=== PATIENT | female | born 1935 | race Caucasian/White ===

== ENCOUNTER 2020-12-09 18:43 | Outpatient (CLI) | payer MEDICARE, MEDICAID, SELFPAY ==
[2020-12-09 19:20] LABS: Acetaminophen < 5.0 ug/mL (10-30)
== END 2020-12-09 18:44 | disposition home or self-care (01) ==
LOC: LAB 18:46
PROVIDERS: PCP Family Medicine; Visit Provider Family Medicine
DX: T39.1X1A Poisoning by 4-Aminophenol derivatives, accidental (unintentional), initial encounter (principal)
CPT/HCPCS: 80307

== ENCOUNTER 2021-02-01 18:08 | Emergency (ER) | payer MEDICARE, MEDICAID, SELFPAY ==
[2021-02-01 18:15] VITALS: BP 184/69; PULSE 70; RESP 19; TEMP 36.7; O2SAT 96; BMI 28.3
--- NOTE | 2021-02-01 18:37 | CTR_ITS ---
PROCEDURE INFORMATION: Exam: CT Chest Without Contrast; Diagnostic Exam date and time: 02/01/2021 6:37 PM Age: 85 years old Clinical indication: Injury or trauma; Fall; Generalized; Blunt trauma (contusions or hematomas); Patient HX: ? Syncope episode fell getting out of bed C/O L rib and R hip pain; Additional info: Fall chest and abdomen pain TECHNIQUE: Imaging protocol: Diagnostic computed tomography of the chest without contrast. Radiation optimization: All CT scans at this facility use at least one of these dose optimization techniques: automated exposure control; mA and/or kV adjustment per patient size (includes targeted exams where dose is matched to clinical indication); or iterative reconstruction. COMPARISON: CTA Chest-Pulmonary Emb [id number] 09/27/2018 4:58 PM report only, for technical reasons the actual images are not available RADIATION DOSE METRICS: Total DLP (mGy-cm): 1354.21 FINDINGS: Lungs: There is no pneumonia, mass or pleural effusion. In the left upper and lower lobes there are several small 2-4 mm noncalcified nodules. In the lingula there is a 4 mm hazy peripheral nodule. These nodules were not described on the prior report although the actual images are not currently available for direct comparison. Pleural spaces: See Lungs finding. Heart: The mitral valve is heavily calcified. Extensive coronary atherosclerosis. Aorta: Unremarkable. No aortic aneurysm. Lymph nodes: Incidental calcified mediastinal nodes. Bones/joints: There is a mild chronic compression fracture of the T7 vertebral body with 20% loss in height. There is subtle deformity of several bilateral ribs but no definite acute fracture. Soft tissues: Unremarkable. CT Chest at 12 months. (Reference: Yesenia) References: Yesenia Flaherty et al. Guidelines for Management of Incidental Pulmonary Nodules Detected on CT Images: From the Fleischner Society 2017. Radiology. 2017;284(1):228-243. PROCEDURE INFORMATION: Exam: CT Abdomen And Pelvis Without Contrast Exam date and time: 02/01/2021 6:37 PM Age: 85 years old Clinical indication: Injury or trauma; Fall; Generalized; Blunt trauma (contusions or hematomas); Patient HX: ? Syncope episode fell getting out of bed C/O L rib and R hip pain; Additional info: Fall chest and abdomen pain TECHNIQUE: Imaging protocol: Computed tomography of the abdomen and pelvis without contrast. Radiation optimization: All CT scans at this facility use at least one of these dose optimization techniques: automated exposure control; mA and/or kV adjustment per patient size (includes targeted exams where dose is matched to clinical indication); or iterative reconstruction. COMPARISON: CTA Chest-Pulmonary Emb [id number] 09/27/2018 4:58 PM RADIATION DOSE METRICS: Total DLP (mGy-cm): 1354.21 FINDINGS: Liver: Normal. No mass. Gallbladder and bile ducts: The gallbladder is surgically absent. Pancreas: Normal. No ductal dilation. Spleen: Normal. No splenomegaly. Adrenal glands: Normal. No mass. Kidneys and ureters: 2.2 cm simple cyst in the right kidney. Stomach and bowel: Scattered distal colonic diverticula are not inflamed. Appendix: No evidence of appendicitis. Intraperitoneal space: Unremarkable. No free air. No significant fluid collection. Vasculature: There is heavy calcified plaque in the abdominal aorta and SMA. Lymph nodes: Unremarkable. No enlarged lymph nodes. Urinary bladder: Unremarkable as visualized. Reproductive: The uterus is absent and the ovaries are not seen. Bones/joints: Multilevel chronic degenerative changes throughout the lumbar spine with mild central stenosis at L2-L3, L3-L4 and L4-L5 due to degenerative changes. Mild convex right lumbar scoliosis. The hip joint spaces are preserved. Soft tissues: 8 cm supraumbilical ventral hernia consist of fatty tissue only. There is also an 8 cm infraumbilical ventral hernia. CT/CT chest abd pel wo con IMPRESSION: 1. No acute chest findings. 2. Coronary atherosclerosis. 3. Several small calcified and noncalcified left lung nodules up to 4 mm. For patients at low risk (minimal or absent history of smoking and of other known risk factors), no routine follow-up is indicated. For patients at high risk (history of smoking or of other known risk factors), consider optional IMPRESSION: 1. No acute abdominopelvic findings. 2. Intact hips and pelvis. 3. Several ventral hernias consisting of fatty tissue only. 4. Colonic diverticulosis and multifocal atherosclerosis. COMMENTS: Consistent with the [employer]'s Incidental Findings Committee white paper (J Am Lazaro Radiol 2018): Any incidental renal lesion less than 1 cm or classified as too small to characterize, or any incidental cystic renal lesion characterized as simple-appearing, is likely benign. No follow-up imaging is recommended for these lesions per consensus recommendations based on imaging criteria. Radiation Dose CTDIVOL = (mGy): DLP = 1354.21~1354.21 (mGy-cm)
--- NOTE | 2021-02-01 18:37 | CTR_ITS ---
PROCEDURE INFORMATION: Exam: CT Head Without Contrast Exam date and time: 02/01/2021 6:37 PM Age: 85 years old Clinical indication: Injury or trauma; Fall; Blunt trauma (contusions or hematomas); With loss of consciousness; Loss of consciousness for 30 minutes or less; Patient HX: ? Syncope episode fell getting out of bed; Additional info: Fall syncope TECHNIQUE: Imaging protocol: Computed tomography of the head without contrast. Radiation optimization: All CT scans at this facility use at least one of these dose optimization techniques: automated exposure control; mA and/or kV adjustment per patient size (includes targeted exams where dose is matched to clinical indication); or iterative reconstruction. COMPARISON: CT head wo con* [id number] 09/27/2018 4:06 PM RADIATION DOSE METRICS: Total DLP (mGy-cm): 765.84 FINDINGS: Brain: There is an acute hemorrhage in the right basal ganglia/external capsule measuring 1.9 x 1.4 x 2.7 cm. There is volume loss and periventricular low density compatible with chronic small vessel disease changes. There is no edema or mass effect. Cerebral ventricles: No intraventricular hemorrhage. Paranasal sinuses: Visualized sinuses are unremarkable. No fluid levels. Mastoid air cells: Visualized mastoid air cells are well aerated. Bones/joints: Unremarkable. No acute fracture. Soft tissues: Unremarkable. Other findings: Minimal hypodensity surrounding the hemorrhages compatible with probable mild reactive edema. No additional acute hemorrhage. CT/CT head wo con* [id number] IMPRESSION: 1. There is an acute hemorrhage in the right basal ganglia/external capsule measuring 1.9 x 1.4 x 2.7 cm. 2. There is underlying volume loss. No shift or mass effect. Radiation Dose CTDIVOL = (mGy): DLP = 765.84 (mGy-cm)
--- NOTE | 2021-02-01 18:37 | CTR_ITS ---
PROCEDURE INFORMATION: Exam: CT Cervical Spine Without Contrast Exam date and time: 02/01/2021 6:37 PM Age: 85 years old Clinical indication: Injury or trauma; Fall; Blunt trauma; Patient HX: ? Syncope episode fell getting out of bed; Additional info: Fall syncope TECHNIQUE: Imaging protocol: Computed tomography images of the cervical spine without contrast. Radiation optimization: All CT scans at this facility use at least one of these dose optimization techniques: automated exposure control; mA and/or kV adjustment per patient size (includes targeted exams where dose is matched to clinical indication); or iterative reconstruction. COMPARISON: CT head wo con* [id number] 02/01/2021 7:48 PM RADIATION DOSE METRICS: Total DLP (mGy-cm): 378.46 FINDINGS: Bones/joints: No acute fracture. Normal alignment. Osteopenia and diffuse moderate spondylosis is noted. Discs/Spinal canal/Neural foramina: No significant disc protrusion. No severe spinal canal stenosis. No significant neural foraminal narrowing. Lungs: Lung apices are normal. Soft tissues: Unremarkable. CT/CT cervical spin wo con* [id number] IMPRESSION: No acute findings. Radiation Dose CTDIVOL = (mGy): DLP = 378.46 (mGy-cm)
--- NOTE | 2021-02-01 18:42 | XRR_ITS ---
PROCEDURE INFORMATION: Exam: XR Right Femur Exam date and time: 02/01/2021 6:42 PM Age: 85 years old Clinical indication: Injury or trauma; Fall; Blunt trauma; Thigh or upper leg; Right TECHNIQUE: Imaging protocol: XR Right femur. Views: 2 views. COMPARISON: No relevant prior studies available. FINDINGS: Bones/joints: Moderate to severe degenerative changes are noted in the right knee and hip. No acute fracture or dislocation is identified. There is severe osteopenia. Soft tissues: There is diffuse subcutaneous edema. XR/XR femur RT min 2V* [id number] IMPRESSION: No acute bony abnormality is identified. Radiation Dose CTDIVOL = (mGy): DLP = (mGy-cm)
--- NOTE | 2021-02-01 18:44 | W.ED.WEAKNES ---
HPI - Weakness General: Chief complaint: Weakness Stated complaint: PAIN LEFT RIB AFTER FALL Time Seen by Provider: 02/01/21 18:17 History of Present Illness: HPI Narrative: 85-year-old female presents after a standing level fall. She notes she has been in bed for the last couple of days, she has not felt well. She has been vomiting. She has not eaten in 2 to 3 days she says. She is generally weak. She went to get out of bed to get to the potty chair, believes she may have passed out or fainted, and fell to the floor. She complains of right lower extremity pain around the knee, and left-sided rib/chest wall pain. She denies any chest pain otherwise, denies headache, denies significant shortness of breath or cough. She says she has not had a fever. No one else in the home has been sick. She has had 2 Covid vaccinations Complaint: generalized weakness Onset (ago): day(s) Duration: constant and progressively worsening Location: generalized Migration: none Severity: moderate Relieving factors: none Exacerbating factors: movement and exertion Context: recent illness Associated symptoms: Reports chest pain (Rib pain from fall), decreased appetite, nausea, syncope and vomiting; Denies chills, confusion, diaphoresis, dysuria, fever(s), headache(s), rash or short of breath Review of Systems Const: Denies: fever(s), chills or diaphoresis Card: Reports: chest pain (Rib pain from fall) and syncope GI: Reports: nausea and vomiting : Denies: dysuria Neuro: Denies: headache(s) or confusion Physical Exam Const: COMMON NORMALS: no acute distress and alert GENERAL APPEARANCE: frail appearing NUTRITIONAL APPEARANCE: overweight ORIENTATION/CONSCIOUSNESS: Yes awake, Yes oriented to person, Yes oriented to place and Yes oriented to time (Somewhat) HENMT: COMMON NORMALS: normocephalic and atraumatic HEAD & SCALP: normocephalic and atraumatic Chest: CHEST: Yes tenderness (Left lateral chest wall tenderness) Resp: COMMON NORMALS: normal respiratory effort, No use of accessory muscles and clear to auscultation bilaterally AUSCULTATION: clear to auscultation bilaterally Cardio: COMMON NORMALS: regular rate and regular rhythm RATE: regular rate RHYTHM: regular rhythm GI: COMMON NORMALS: Normal to inspection, nondistended, normoactive bowel sounds present and Soft to palpation PALPATION: Yes Soft to palpation and Yes Tenderness to palpation present (GI) (diffuse) Extremity: GENERAL: Yes edema (1-2+) OTHER: Exam of the right lower extremity reveals tenderness over the distal thigh and proximal thigh/hip. There is pain on straight leg raise testing at the thigh and knee, there is pain on logroll testing at the hip. No deformity. Neuro: SENSORIUM/ORIENTATION: Yes alert, Yes oriented to person, Yes oriented to place and Yes oriented to time (Somewhat) Course Vital Signs: Vital signs: Vital Signs Temperature 98.1 F 02/01/21 18:15 Pulse Rate 74 02/01/21 21:29 Respiratory Rate 18 02/01/21 21:29 Blood Pressure 171/76 02/01/21 21:29 Pulse Oximetry 97 02/01/21 21:29 MDM - Weakness MDM Narrative: Medical decision making narrative: CT of the head shows an acute hemorrhage in the right basal ganglia. Unknown whether this was the cause of the illness and the patient, or this is a result of trauma from the syncopal fall. Likely the former. She is awake and talking. She is mildly hypertensive with blood pressure 158/74 currently. Pulse 60, respirations 18 oxygen saturation 97% on room air. [facility] is not flying. Will attempt ground transfer to [facility] in [place] where neurosurgery services/NTICU are available. Spoke with [facility], they request results of CT chest abdomen pelvis to be sent when we have them. C-spine is cleared by CT. CT chest/abd/pelvis is essentially clear. No fractures by ct. Lab Data: Labs: Lab Results 02/01/21 02/01/21 02/01/21 18:35 18:35 18:35 WBC 6.8 10^3/uL 10^3/ uL (4.0-10.0) RBC 3.58 10^6/uL L 10 ^6/uL (4.1-5.3) Hgb 11.1 g/dL L g/dL (11.5-15.3) Hct 34.8 % L % (37.0-47.0) MCV 97.2 fl fl (81-99) MCH 31.0 pg pg (28.0-34.0) MCHC 31.9 g/dL g/dL (30.0-36.0) RDW 14.1 % % (12.1-15.1) Plt Count 347 10^3/cmm 10^3 /cmm (130-400) MPV 10.2 fL fL (7.4-10.4) Neut % (Auto) 68.5 % % Lymph % (Auto) 23.9 % % Kimball % (Auto) 5.2 % % Eos % (Auto) 0.9 % % Baso % (Auto) 1.2 % % Neut # (Auto) 4.64 10^3/uL 10^3 /uL (1.8-7.7) Lymph # (Auto) 1.6 10^3/uL 10^3/ uL (0.8-4.8) Kimball # (Auto) 0.4 10^3/uL 10^3/ uL (0.2-0.9) Eos # (Auto) 0.1 10^3/uL 10^3/ uL (0.0-0.8) Baso # (Auto) 0.1 10^3/uL 10^3/ uL (0.0-0.1) Nucleated RBC % (a uto) 0 % % Nucleated RBCs # 0.0 /100WBC /100W BC PT 11.70 SECONDS L S ECONDS (12.1-14.9) INR 0.83 (0.8-1.2) APTT 28.4 SECONDS SECO NDS (23.9-36.7) Sodium 134 mmol/L L mmol /L (136-145) Potassium 4.3 mmol/L mmol/L (3.5-5.1) Chloride 96 mmol/L L mmol/ L (98-107) Carbon Dioxide 24 mmol/L mmol/L (22-29) Anion Gap 18.3 (5-19) BUN 17 mg/dL mg/dL (8-23) Creatinine 0.8 mg/dL mg/dL (0.5-0.9) GFR Calculation Not Reportable Glucose 155 mg/dL H mg/dL (65-115) Calculated Osmolal ity 283 mOsm/kg L mOs m/kg (285-295) Calcium 8.9 mg/dL mg/dL (8.5-10.5) Total Bilirubin 0.2 mg/dL mg/dL (0.15-1.2) AST 12 U/L U/L (0-32) ALT 10 U/L U/L (0-33) Alkaline Phosphata se 63 IU/L IU/L (35-105) Creatine Kinase 57 U/L U/L (26-192) Troponin T Baselin e C-Reactive Protein 1.3 mg/L mg/L (0.0-4.9) NT-Pro-B Natriuret Pep 1505 pg/mL H pg/m L (0-450) Total Protein 6.1 g/dL L g/dL (6.6-8.7) Albumin 3.5 g/dL g/dL (3.5-5.2) Globulin 2.6 g/dL g/dL (1.3-4.6) Procalcitonin 0.02 ng/mL ng/mL (0-0.5) Urine Color Urine Appearance Urine pH Ur Specific Gravit y Urine Protein Urine Glucose (UA) Urine Ketones Urine Blood Urine Nitrate Urine Bilirubin Urine Urobilinogen Ur Leukocyte Syeda ase Urine RBC Urine WBC Ur Squamous Epith Cells Amorphous Sediment Urine Bacteria 02/01/21 02/01/21 18:35 19:50 WBC RBC Hgb Hct MCV MCH MCHC RDW Plt Count MPV Neut % (Auto) Lymph % (Auto) Kimball % (Auto) Eos % (Auto) Baso % (Auto) Neut # (Auto) Lymph # (Auto) Kimball # (Auto) Eos # (Auto) Baso # (Auto) Nucleated RBC % (a uto) Nucleated RBCs # PT INR APTT Sodium Potassium Chloride Carbon Dioxide Anion Gap BUN Creatinine GFR Calculation Glucose Calculated Osmolal ity Calcium Total Bilirubin AST ALT Alkaline Phosphata se Creatine Kinase Troponin T Baselin e 41 ng/L H ng/L (0-10) C-Reactive Protein NT-Pro-B Natriuret Pep Total Protein Albumin Globulin Procalcitonin Urine Color Yellow (Yellow) Urine Appearance Sl hazy (CLEAR) Urine pH 5 (5-7) Ur Specific Gravit y 1.015 (1.005-1.030) Urine Protein Neg (Negative) Urine Glucose (UA) Norm (Normal) Urine Ketones Negative (Negative) Urine Blood Neg (Negative) Urine Nitrate Negative (Negative) Urine Bilirubin Neg (Negative) Urine Urobilinogen Norm mg/dL mg/dL (Negative) Ur Leukocyte Syeda ase Negative (Negative) Urine RBC 0-4 /hpf H /hpf (0-2) Urine WBC 0-4 /hpf H /hpf (0-5) Ur Squamous Epith Cells 15-25 /hpf H /hpf (0-5) Amorphous Sediment Not Reportable Urine Bacteria 3+ /hpf H /hpf (NONE) Discharge Plan Discharge Patient Disposition: Xfer Short-Term Hosp Clinical Impression: Intraparenchymal hematoma of brain Qualifiers: Encounter type: initial encounter Laterality: right Loss of consciousness presence/duration: with LOC of 30 min or less Qualified Code(s): S06.341A - Traumatic hemorrhage of right cerebrum with loss of consciousness of 30 minutes or less, initial encounter Condition: Stable Referrals: Williams Hale MD [Primary Care Provider] - Coding Level of Care Code ED Supervisor Spring Up for Chg Fwd Exam Detailed
--- NOTE | 2021-02-01 18:47 | ECG_ITS ---
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 Measurements Intervals [place] Rate: 71 P: 60 TN: 158 QRS: -42 QRSD: 125 T: 72 QT: 411 QTc: 450 Interpretive Statements SINUS RHYTHM LEFT AXIS DEVIATION [QRS AXIS < -30] MODERATE INTRAVENTRICULAR CONDUCTION DELAY [110+ ms QRS DURATION] Compared to ECG 09/27/2018 23:50:33 Left-axis deviation now present Intraventricular conduction delay now present Left anterior fascicular block no longer present Electronically Signed On 02-02-2021 16:59:42 [employer] by Juwan Dubon M.D. [id number]
[2021-02-01 18:52] VITALS: BP 158/74; PULSE 98; RESP 18; O2SAT 98
[2021-02-01 18:57] LABS: Basophils # 0.1 10^3/uL (0.0-0.1); Basophils % 1.2 %; Eosinophils # 0.1 10^3/uL (0.0-0.8); Eosinophils % 0.9 %; Hematocrit 34.8 % (37.0-47.0); Hemoglobin 11.1 g/dL (11.5-15.3); Lymphocytes # 1.6 10^3/uL (0.8-4.8); Lymphocytes % 23.9 %; Mean Corpuscular HGB Conc 31.9 g/dL (30.0-36.0); Mean Corpuscular Volume 97.2 fl (81-99); Mean Platelet Volume 10.2 fL (7.4-10.4); Monocytes # 0.4 10^3/uL (0.2-0.9); Monocytes % 5.2 %; Neutrophils # 4.64 10^3/uL (1.8-7.7); Neutrophils % 68.5 %; Nucleated Red Blood Cells % 0 %; Platelet Count 347 10^3/cmm (130-400); Red Blood Count 3.58 10^6/uL (4.1-5.3); Red Cell Distribution Width 14.1 % (12.1-15.1); White Blood Count 6.8 10^3/uL (4.0-10.0)
[2021-02-01] MEDS: sodium chloride 0.9% 1,000 ML 999 ML IV (19:04)
[2021-02-01 19:07] LABS: INR 0.83 (0.8-1.2)
[2021-02-01 19:08] LABS: Partial Thromboplastin Time 28.4 SECONDS (23.9-36.7)
[2021-02-01 19:20] LABS: Troponin(5th) Baseline 41 ng/L (0-10)
[2021-02-01 19:26] LABS: NT Pro B Type Natriuretic Pept 1505 pg/mL (0-450); Procalcitonin 0.02 ng/mL (0-0.5)
[2021-02-01 19:38] LABS: Alanine Aminotransferase 10 U/L (0-33); Albumin Level 3.5 g/dL (3.5-5.2); Alkaline Phosphatase 63 IU/L (35-105); Anion Gap 18.3 (5-19); Aspartate Amino Transferase 12 U/L (0-32); Blood Urea Nitrogen 17 mg/dL (8-23); C Reactive Protein 1.3 mg/L (0.0-4.9); Calcium 8.9 mg/dL (8.5-10.5); Carbon Dioxide 24 mmol/L (22-29); Chloride 96 mmol/L (98-107); Creatine Phosphokinase 57 U/L (26-192); Globulin 2.6 g/dL (1.3-4.6); Glucose 155 mg/dL (65-115); Osmolality Calculated 283 mOsm/kg (285-295); Potassium 4.3 mmol/L (3.5-5.1); Sodium 134 mmol/L (136-145); Total Bilirubin 0.2 mg/dL (0.15-1.2); Total Protein 6.1 g/dL (6.6-8.7)
[2021-02-01 20:00] VITALS: BP 158/74; PULSE 60; RESP 18; O2SAT 97
[2021-02-01 20:28] LABS: Add Urine Microscopic? YES; Bilirubin Urine Neg (Negative); Blood Urine Neg (Negative); Glucose Urine UA Norm (Normal); Ketones Urine Negative (Negative); Leukocyte Esterase Urine Negative (Negative); Nitrate Urine Negative (Negative); Protein Urine Neg (Negative); Specific Gravity, Urine 1.015 (1.005-1.030); Urine Appearance SL Hazy (CLEAR); Urine Color Yellow (Yellow); Urobilinogen Urine Norm (Negative); pH Urine 5 (5-7)
[2021-02-01 20:37] LABS: Add Urine Culture? No; Bacteria Urine 3+ /hpf; RBC Urine 0-4 /hpf (0-2); Squamous Epithelial Cell Urine 15-25 /hpf (0-5); WBC Urine 0-4 /hpf (0-5)
[2021-02-01 21:00] VITALS: BP 172/86; PULSE 71; RESP 18; O2SAT 97
[2021-02-01 21:29] VITALS: BP 171/76; PULSE 74; RESP 18; O2SAT 97
--- NOTE | 2021-02-01 22:15 | PC.NURSE ---
Narrative note Family in room, stated she was the caregiver and signs all pt's paperwork. Aura Damian called to check on status of pt. Aura was not on family list, she continued to stated she need more information than was given by family at bedside. Aura continued to stated she is with Lizzy Workman. Lizzy on the phone. Information given about transfer and emergent need.
== END 2021-02-01 21:31 | disposition short-term general hospital (02) ==
PROVIDERS: Emergency Provider Emergency Medicine; PCP Family Medicine
DX: S06.341A Traumatic hemorrhage of right cerebrum with loss of consciousness of 30 minutes or less, initial encounter (principal); W19.XXXA Unspecified fall, initial encounter
CPT/HCPCS: 70450; 71250; 72125; 73552; 74176; 80053; 81001; 82550; 83880; 84145; 84484; 85025; 85610; 85730; 86140; 93005; 96360; 99285; J7030

== ENCOUNTER 2021-02-23 10:45 | Outpatient (CLI) | payer MEDICARE, MEDICAID, SELFPAY ==
[2021-02-23 11:04] VITALS: BP 118/51; PULSE 90; RESP 20; TEMP 36.8; O2SAT 91
[2021-02-23 12:12] VITALS: BP 123/58; PULSE 71; RESP 19; TEMP 36.8; O2SAT 99
[2021-02-23 13:02] VITALS: BP 118/61; PULSE 74; RESP 17; TEMP 36.8; O2SAT 97
[2021-02-23 13:05] VITALS: BP 118/61; PULSE 74; RESP 17; TEMP 37.1; O2SAT 97
== END 2021-02-23 10:46 | disposition home or self-care (01) ==
LOC: OPS 10:47
PROVIDERS: PCP Internal Medicine; Visit Provider Internal Medicine
DX: U07.1 COVID-19 (principal)
CPT/HCPCS: 96365

== ENCOUNTER 2021-04-01 11:45 | Outpatient (CLI) | payer MEDICARE, MEDICAID, SELFPAY ==
[2021-04-01 12:19] LABS: Basophils # 0.1 10^3/uL (0.0-0.1); Basophils % 0.8 %; Eosinophils # 0.1 10^3/uL (0.0-0.8); Eosinophils % 1.3 %; Hematocrit 36.7 % (37.0-47.0); Hemoglobin 11.8 g/dL (11.5-15.3); Lymphocytes # 2.1 10^3/uL (0.8-4.8); Lymphocytes % 33.2 %; Mean Corpuscular HGB Conc 32.2 g/dL (30.0-36.0); Mean Corpuscular Hemoglobin 30.3 pg (28.0-34.0); Mean Corpuscular Volume 94.1 fl (81-99); Mean Platelet Volume 10.7 fL (7.4-10.4); Monocytes # 0.2 10^3/uL (0.2-0.9); Monocytes % 3.8 %; Neutrophils # 3.88 10^3/uL (1.8-7.7); Neutrophils % 60.6 %; Nucleated Red Blood Cells % 0 %; Platelet Count 392 10^3/cmm (130-400); Red Cell Distribution Width 14.7 % (12.1-15.1); White Blood Count 6.4 10^3/uL (4.0-10.0)
[2021-04-01 12:33] LABS: Estmated Average Glucose 128; Hemoglobin A1C 6.1 % (4.0-6.0)
[2021-04-01 12:56] LABS: Alanine Aminotransferase < 5 U/L (0-33); Albumin Level 2.5 g/dL (3.5-5.2); Alkaline Phosphatase 97 IU/L (35-105); Anion Gap 20.5 (5-19); Aspartate Amino Transferase 10 U/L (0-32); Blood Urea Nitrogen 42 mg/dL (8-23); Calcium 9.7 mg/dL (8.5-10.5); Carbon Dioxide 20 mmol/L (22-29); Chloride 100 mmol/L (98-107); Globulin 3.3 g/dL (1.3-4.6); Glucose 65 mg/dL (65-115); Osmolality Calculated 291 mOsm/kg (285-295); Potassium 4.5 mmol/L (3.5-5.1); Sodium 136 mmol/L (136-145); Total Bilirubin 0.2 mg/dL (0.15-1.2); Total Protein 5.8 g/dL (6.6-8.7)
== END 2021-04-01 11:46 | disposition home or self-care (01) ==
PROVIDERS: PCP Internal Medicine; Visit Provider Family Medicine
DX: I25.10 Atherosclerotic heart disease of native coronary artery without angina pectoris (principal)
CPT/HCPCS: 80053; 83036; 84443; 85025